=== PATIENT | female | born 1945 | race Caucasian/White ===

== ENCOUNTER 2016-11-06 17:09 | Inpatient (IN) | payer MEDICARE, BC ==
[~2016-11-06] VITALS: Ht 160 cm; Wt 113.6 kg
[2016-11-06 18:49] VITALS: BP 151/58; PULSE 86; TEMP 97.1
[2016-11-06 20:00] VITALS: BP 156/48; PULSE 89; TEMP 98.8
[2016-11-06] MEDS ORDERED: PRAVACHOL 40MG40 MG PO (22:24)
[2016-11-06] MEDS ORDERED: SLO-NIACIN750 MG PO (22:25)
[2016-11-06] MEDS ORDERED: HCTZ 25MG TAB25 MG PO (22:26)
[2016-11-06] MEDS ORDERED: EPA FISH OIL1 SGL PO (22:26)
[2016-11-06] MEDS ORDERED: ACTOS30 MG PO (22:28)
[2016-11-06] MEDS ORDERED: TRICOR145 MG PO (22:29)
[2016-11-06] MEDS ORDERED: LEVEMIR FLEX100 U/ML SQ (22:30)
[2016-11-06] MEDS ORDERED: LASIX 80MG TABL80 MG PO (22:32)
[2016-11-06] MEDS ORDERED: ACCUPRIL40MGTAB PO (22:33)
[2016-11-07] VITALS (12 sets, daily range): BP systolic 133–161; BP diastolic 38–63; PULSE 73–85; TEMP 97.2–100
[2016-11-07 06:39] LABS: BASO % 0.3 % (0.0-2.0); EOS % 0.1 % (0-4.0); GRAN # 6.5 (1.4-6.5); GRAN % 81.8 % (42.2-75.2); LYMPH # 0.7 (1.2-3.4); LYMPH % 8.9 % (20.0-51.0); MEAN CELL VOLUME 91 fl (80.0-100.0); MEAN CORPUSCULAR HGB CONC 33 g/dl (33.0-37.0); MEAN PLATELET VOLUME 9.2 fl (7.4-10.4); MONO # 0.7 (0.1-0.6); MONO % 8.5 % (1.7-9.3); PLATELET COUNT 154 K/mm3 (130-400); RED BLOOD COUNT 3.21 M/mm3 (4.10-5.30); REDCELL DISTRIBUTION WIDTH-CV 13.8 % (11.5-14.5)
[2016-11-07 06:40] LABS: HEMATOCRIT 29.3 % (37.0-47.0); HEMOGLOBIN 9.8 g/dl (12.5-16.0); MEAN CORPUSCULAR HEMOGLOBIN 31 pg (27.0-31.0)
[2016-11-07 07:41] LABS: ADJUSTED CALCIUM 9.5 mg/dL (8.4-10.2); ALBUMIN 3.4 gm/dL (3.5-5.0); BILIRUBIN,TOTAL 5.8 mg/dL (0.0-1.0); CREATININE, serum 1.29 mg/dL (0.52-1.25); POTASSIUM 3.2 mmol/L (3.4-5.0); TOTAL PROTEIN 6.7 gm/dL (6.4-8.2)
[2016-11-07] MEDS ORDERED: COREG 25MG25 MG/TAB PO (11:09)
[2016-11-08] VITALS (13 sets, daily range): BP systolic 148–159; BP diastolic 49–67; PULSE 70–78; TEMP 97.9–98.8
[2016-11-08 07:12] LABS: BASO % 0.6 % (0.0-2.0); EOS # 0.1 (0.0-0.7); GRAN # 3.2 (1.4-6.5); GRAN % 66.7 % (42.2-75.2); LYMPH # 0.9 (1.2-3.4); LYMPH % 18.9 % (20.0-51.0); MEAN CELL VOLUME 92 fl (80.0-100.0); MEAN CORPUSCULAR HGB CONC 33 g/dl (33.0-37.0); MEAN PLATELET VOLUME 9.8 fl (7.4-10.4); MONO # 0.6 (0.1-0.6); MONO % 11.5 % (1.7-9.3); PLATELET COUNT 150 K/mm3 (130-400); RED BLOOD COUNT 3.17 M/mm3 (4.10-5.30); REDCELL DISTRIBUTION WIDTH-CV 14.1 % (11.5-14.5); WHITE BLOOD COUNT 4.8 K/mm3 (4.8-10.8)
[2016-11-08 07:23] LABS: HEMATOCRIT 29.3 % (37.0-47.0); HEMOGLOBIN 9.6 g/dl (12.5-16.0); MEAN CORPUSCULAR HEMOGLOBIN 30 pg (27.0-31.0)
[2016-11-08 07:24] LABS: ADJUSTED CALCIUM 9.5 mg/dL (8.4-10.2); ALBUMIN 3.3 gm/dL (3.5-5.0); BILIRUBIN,TOTAL 4.5 mg/dL (0.0-1.0); CALCIUM 8.9 mg/dL (8.4-10.2); CREATININE, serum 1.1 mg/dL (0.52-1.25); TOTAL PROTEIN 6.5 gm/dL (6.4-8.2)
[2016-11-08 07:34] LABS: POTASSIUM 2.8 mmol/L (3.4-5.0)
[2016-11-08 13:28] LABS: CALCIUM 9.1 mg/dL (8.4-10.2); CREATININE, serum 0.92 mg/dL (0.52-1.25); POTASSIUM 3.7 mmol/L (3.4-5.0)
[2016-11-09 01:05] VITALS: BP 161/63; PULSE 88; TEMP 100.4
[2016-11-09 02:23] VITALS: BP 132/58; PULSE 88; TEMP 99.4
[2016-11-09 06:00] VITALS: BP 139/59; PULSE 82; TEMP 98.4
[2016-11-09 07:42] LABS: BASO % 0.4 % (0.0-2.0); EOS % 0.1 % (0-4.0); GRAN # 9.4 (1.4-6.5); GRAN % 83.1 % (42.2-75.2); LYMPH # 0.8 (1.2-3.4); LYMPH % 7.4 % (20.0-51.0); MEAN CELL VOLUME 95 fl (80.0-100.0); MEAN CORPUSCULAR HGB CONC 32 g/dl (33.0-37.0); MONO # 0.9 (0.1-0.6); MONO % 7.6 % (1.7-9.3); PLATELET COUNT 225 K/mm3 (130-400); RED BLOOD COUNT 3.38 M/mm3 (4.10-5.30); WHITE BLOOD COUNT 11.3 K/mm3 (4.8-10.8)
[2016-11-09 07:50] LABS: HEMOGLOBIN 10.1 g/dl (12.5-16.0); MEAN CORPUSCULAR HEMOGLOBIN 30 pg (27.0-31.0)
[2016-11-09 07:51] LABS: CALCIUM 8.9 mg/dL (8.4-10.2); CREATININE, serum 1.11 mg/dL (0.52-1.25); POTASSIUM 3.8 mmol/L (3.4-5.0)
[2016-11-09 09:06] VITALS: BP 151/57; PULSE 78; TEMP 99.1
[2016-11-09] MEDS ORDERED: Cipro PO (12:29)
[2016-11-09] MEDS ORDERED: FLAGYL500 MG PO (12:29)
[2016-11-09] MEDS ORDERED: COLACE 100100 MG/CAP PO (12:30)
[2016-11-09] MEDS ORDERED: NORCO 325 MG-51 TAB PO (12:30)
== END 2016-11-09 16:16 | disposition home or self-care (01) | DRG 419 ==
LOC: SURG 17:09
PROVIDERS: Surgery
PROC: 0FC98ZZ Extirpation of Matter from Common Bile Duct, Via Natural or Artificial Opening Endoscopic (ICD-10-PCS; 2016-11-07)
PROC: 0F798ZZ Dilation of Common Bile Duct, Via Natural or Artificial Opening Endoscopic (ICD-10-PCS; 2016-11-07)
PROC: 0W3G4ZZ Control Bleeding in Peritoneal Cavity, Percutaneous Endoscopic Approach (ICD-10-PCS; 2016-11-08)
PROC: 0FT44ZZ Resection of Gallbladder, Percutaneous Endoscopic Approach (ICD-10-PCS; principal; 2016-11-08 08:00)
DX: K80.67 Calculus of gallbladder and bile duct with acute and chronic cholecystitis with obstruction (principal); E11.9 Type 2 diabetes mellitus without complications; I10 Essential (primary) hypertension; Z79.4 Long term (current) use of insulin; E87.6 Hypokalemia; R58 Hemorrhage, not elsewhere classified
CPT/HCPCS: A9284; C1769; J0330; J0690; J0694; J1100; J1170; J1815; J1885; J2405; J2543; J2550; J2704; J2710; J2765; J3010; J3480; J7030; J7050; J7120; Q9967